=== PATIENT | female | born 1985 | race Caucasian/White ===

== ENCOUNTER 2018-02-23 08:35 | Emergency (ER) | payer OTHER ==
[~2018-02-23] VITALS: Ht 177.8 cm; Wt 79.4 kg
[2018-02-23 08:51] LABS: URINE BILIRUBIN NEGATIVE (Negative); URINE BLOOD 3+ (Negative); URINE CLARITY CLOUDY; URINE COLOR YELLOW; URINE GLUCOSE-RANDOM* NEGATIVE (Negative); URINE KETONES NEGATIVE (Negative); URINE LEUKOCYTES-REFLEX NEGATIVE (Negative); URINE NITRITE-REFLEX NEGATIVE (Negative); URINE PROTEIN (DIPSTICK) TRACE (Negative); URINE SPECIFIC GRAVITY >= 1.030 (1.005-1.035); URINE UROBILINOGEN 0.2 E.U./dl (0.2-1.0)
[2018-02-23 09:00] LABS: SQUAMOUS >10 Many /LPF (0-3)
[2018-02-23 09:01] LABS: CASTS None Seen /LPF (None Seen); CRYSTALS None Seen /LPF (None Seen); URINE WBC-REFLEX 0-5 Rare /HPF (0-5)
[2018-02-23 09:19] LABS: ABSOLUTE NEUTROPHILS 2.8 thou/uL (1.4-8.2); EOSINOPHILS 5.1 % (0.0-3.0); HEMATOCRIT 42.2 % (37.0-47.0); HEMOGLOBIN 14.8 gm/dL (12.0-15.0); LYMPHOCYTES 33.9 % (24.0-44.0); MCHC 35.1 g/dL (28.0-37.0); MONOCYTES 6.2 % (1.0-8.0); PLATELET COUNT 235 thou/uL (150-400); POLYS 53.8 % (36.0-66.0); RBC 4.64 mil/uL (4.20-5.00); RDW 12.5 % (10.5-14.5); WBC 5.2 thou/uL (4.0-11.0)
[2018-02-23 09:26] LABS: CALCIUM 9.1 mg/dL (8.5-10.1)
[2018-02-23 09:32] LABS: TOTAL BILIRUBIN 0.5 mg/dL (<0.1-1.0); TOTAL PROTEIN 7.9 g/dL (6.4-8.2)
[2018-02-23] MEDS ORDERED: NORCO 5-325 TA1 EACH PO (10:31)
[2018-02-23] MEDS ORDERED: ZOFRAN ODT8 MG PO (10:31)
== END 2018-02-23 14:43 | disposition home or self-care (01) ==
LOC: ER 08:35
PROVIDERS: Emergency Medicine
DX: N20.1 Calculus of ureter (principal)